=== PATIENT | male | born 1970 | race Caucasian/White ===

== ENCOUNTER 2016-12-09 10:34 | Emergency (ER) | payer OTHER ==
[~2016-12-09] VITALS: Ht 160 cm; Wt 70.0 kg
[2016-12-09 10:41] VITALS: Ht 160 cm; Wt 70.0 kg
[2016-12-09] MEDS ORDERED: SOD CHLORIDE 0.9% 1,000 ML IV STA (10:44)
[2016-12-09 11:36] LABS: BASOPHILS % 0.4 % (0.0-2.0); EOSINOPHILS # 0.1 10^3/ul (0.0-0.5); EOSINOPHILS % 1.1 % (0.0-7.0); HEMATOCRIT 41.7 % (42.0-52.0); HEMOGLOBIN 14.2 g/dl (14.0-18.0); LYMPHOCYTES # 1.3 10^3/ul (0.8-2.9); LYMPHOCYTES % 23.9 % (15.0-51.0); MEAN CORPUSCULAR HEMOGLOBIN 33.1 pg (29.0-33.0); MEAN CORPUSCULAR HGB CONC 34.1 g/dl (32.0-37.0); MEAN CORPUSCULAR VOLUME 97.2 fl (82.0-101.0); MONOCYTE # 0.4 10^3/ul (0.3-0.9); MONOCYTES % 8.1 % (0.0-11.0); NEUTROPHILS % 66.1 % (39.0-77.0); PLATELET COUNT 225 10^3/UL (140-415); RED BLOOD COUNT 4.29 10^6/ul (4.70-6.10); WHITE BLOOD COUNT 5.4 10^3/ul (4.8-10.8)
[2016-12-09 11:41] LABS: ANION GAP 13 (8-16); BLOOD UREA NITROGEN 12 mg/dl (7-20); CALCIUM 8.2 mg/dl (8.4-10.2); CARBON DIOXIDE 24 mmol/L (21-31); CHLORIDE 107 mmol/L (97-110); CREATININE 0.83 mg/dl (0.61-1.24); GLUCOSE 152 mg/dl (70-220); POTASSIUM 4.2 mmol/L (3.5-5.1); SODIUM 140 mmol/L (135-144)
[2016-12-09 11:55] LABS: TROPONIN-I < 0.012 ng/ml (0.00-0.12)
--- NOTE | 2016-12-09 13:00 | ERD ---
ER Documentation Chief Complaint Date/Time DATE: 12/09/16 TIME: 12:59 Chief Complaint BIB RA FOR EVAL OF SYNCOPE. PT BRADYCARDIC RATE 30'S BY EMS HPI Patient is a 46-year-old male with no medical problems who presents with syncope. He was brought in by ambulance. He had a syncopal event just prior to arrival while he was in court. When he was in court he heard bad news and after hearing this he passed out. He did not hit his head. He has had 5 episodes of syncope in the past. He denies chest pain or any other pain. He did eat breakfast this morning. Upon review of old medical records this is the patient's first visit to the emergency department. He does not currently have a primary doctor. ROS All systems reviewed and are negative except as per history of present illness. Allergies Allergies: Coded Allergies: No Known Allergy (Unverified , 12/09/16) PMhx/Soc Medical and Surgical Hx: pt denies Medical Hx, pt denies Surgical Hx Hx Alcohol Use: No Hx Substance Use: No Hx Tobacco Use: No Smoking Status: Never smoker Physical Exam Vitals Vital Signs Date Time Temp Pulse Resp B/P Pulse Ox O2 Delivery O2 Flow Rate FiO2 12/09/16 11:50 73 17 133/83 100 Room Air Physical Exam Const: No acute distress Head: Atraumatic Eyes: Normal Conjunctiva ENT: Normal External Ears, Nose and Mouth. Neck: Full range of motion..~ No meningismus. Resp: Clear to auscultation bilaterally Cardio: Regular rate and rhythm, no murmurs Abd: Soft, non tender, non distended. Normal bowel sounds Skin: No petechiae or rashes Back: No midline or flank tenderness Ext: No cyanosis, or edema Neur: Awake and alert Psych: Normal Mood and Affect Result Diagram: 12/09/16 1052 12/09/16 1052 Results 24 hrs Laboratory Tests Test 12/09/16 10:52 White Blood Count 5.410^3/ul Red Blood Count 4.2910^6/ul Hemoglobin 14.2g/dl Hematocrit 41.7% Mean Corpuscular Volume 97.2fl Mean Corpuscular Hemoglobin 33.1pg Mean Corpuscular Hemoglobin Concent 34.1g/dl Red Cell Distribution Width 12.0% Platelet Count 62305^3/UL Mean Platelet Volume 11.0fl Neutrophils % 66.1% Lymphocytes % 23.9% Monocytes % 8.1% Eosinophils % 1.1% Basophils % 0.4% Nucleated Red Blood Cells % 0.0/100WBC Neutrophils # (Manual) 3.610^3/ul Lymphocytes # 1.310^3/ul Monocytes # 0.410^3/ul Eosinophils # 0.110^3/ul Basophils # 0.010^3/ul Nucleated Red Blood Cells # 0.010^3/ul Sodium Level 140mmol/L Potassium Level 4.2mmol/L Chloride Level 107mmol/L Carbon Dioxide Level 24mmol/L Anion Gap 13 Blood Urea Nitrogen 12mg/dl Creatinine 0.83mg/dl Glucose Level 152mg/dl Calcium Level 8.2mg/dl Troponin I < 0.012ng/ml Current Medications Medications (Trade) Dose Ordered Sig/Hailee Route PRN Reason Start Time Stop Time Status Last Admin Dose Admin Sodium Chloride (NS) 1,000 ml @ 1,000 mls/hr Q1H STAT IV 12/09/16 10:44 12/09/16 11:43 DC 12/09/16 11:21 Procedures/MDM EKG read by me: Rate/Rhythm: Sinus bradycardia rate of 59 Intervals: Normal Impression: Sinus bradycardia without ischemia Patient is a 46-year-old male who presents with acute syncope. The patient has a normal EKG and normal laboratory studies. There is no sign of ischemia or arrhythmia at this time. The patient was given 1 L of normal saline for fluid resuscitation. I do not believe he requires further workup or admission the hospital at this time. I doubt serious etiology of his syncope such as ventricular fibrillation or ventricular tachycardia. I believe this is likely vasovagal syncope from the bad news that he heard from the court. The patient will need to follow-up with the local clinics within 24-48 hours as he does not currently have a primary doctor. He can return for any worsening symptoms. Departure Diagnosis: Primary Impression: Syncope Syncope type: unspecified Qualified Code: R55 - Syncope, unspecified syncope type Condition: Fair Patient Instructions: Causes of Syncope Referrals: [facility] Usted se olivier hecho un examen mdico de control que le indica que no est en bebeto condicin que requiera tratamiento urgente en el Departamento de Emergencia. Un estudio ms profundo y el tratamiento de reich condicin pueden esperar sin ningn riesgo hasta que usted sea atendida/o en el consultorio de reich mdico o bebeto cl xander. Es responsabilidad suya arreglar bebeto osmany para el seguimiento del josesito. MANEJO DE CONDICIONES NO URGENTES EN EL FUTURO 1) Si usted tiene un mdico de atencin primaria: Usted debera llamar a reich mdico de atencin primaria antes de venir al departamento de emergencia. Despus de las horas de consultorio, reich doctor o reich asociado/a est disponible por telfono. El mdico o enfermero de [place] en el servicio telefnico puede asesorarle por sha medio para atender el problema, o josesito contrario se puede programar bebeto osmany. 2) Si usted no tiene un mdico de atencin primaria: Llame al mdico o clnica de referencia que aparece abajo sunday las horas de consultorio para hacer bebeto osmany para que le vean. CLINICAS: [place] [id number] [phone] [facility] [phone] [facility]. [facility] [phone] [address] [facility]. [place] [id number] [phone] [facility] [place] [id number] [phone] [facility]. [phone] [address] Additional Instructions: Llame al doctor MAANA y ayden bebeto OSMANY PARA DENTRO DE 1-2 CONTRERAS.Dgale a la secretaria que nosotros le instruimos hacer esta osmany.Avise o llame si reich condicin se empeora antes de la osmany. Regresa aqui si peor o no mejor. DORENE PEREZ MD Dec 09, 2016 13:00
[2016-12-09 13:22] VITALS: BP 125/77; PULSE 76; RESP 17
== END 2016-12-09 13:23 | disposition home or self-care (01) ==
LOC: E/R 10:34
DX: R55 Syncope and collapse (principal)
CPT/HCPCS: 36415; 80048; 84484; 85025; 93005; J7030